=== PATIENT | female | born 1985 | race Caucasian/White ===

== ENCOUNTER 2018-06-27 06:20 | Inpatient (IN) | payer BC, SELFPAY ==
[2018-06-27 06:13] LABS: ROM Internal Control Test YES-OK TO RESULT pt. (Internal QC)
[2018-06-27 06:14] LABS: ROM Patient Test POSITIVE (Negative)
[2018-06-27 06:20] VITALS: BMI 43.5
[2018-06-27] MEDS: Lactated Ringers 1,000 ML 50 ML IV ×3 (07:05→15:32)
[2018-06-27 07:21] LABS: Hematocrit 33.1 % (37-47); Hemoglobin 10.9 g/dl (12.0-15.0); Mean Corp Hgb Conc 32.9 g/gl (32-36); Mean Corpuscular Hgb 29.1 pg (27.0-32.0); Mean Corpuscular Volume 88.5 fL (81-99); Mean Platelet Vol. 9.1 fl (6.2-12.0); Platelet Count 288 K/mm3 (150-450); RBC Distribution Width CV 15.6 % (11.6-14.6); RBC Distribution Width SD 48.9 fl (35.1-43.9); Red Blood Count 3.74 M/mm3 (4.2-5.4); White Blood Count 7.7 K/mm3 (4.4-11.0)
[2018-06-27] MEDS: Cefazolin 2 GM in 0.9% Normal Saline 100 ML IV (07:22)
[2018-06-27 07:34] LABS: Scan Indicated on CBC? Y/N NO
[2018-06-27] MEDS: Oxytocin 30 units/NS 500 ml 30 UNITS/500 ML IV.SOLN IV (07:39)
--- NOTE | 2018-06-27 11:40 | HP.PCM_ITS ---
History Date of Admission: 06/27/18 Final LUCAS: 07/13/18 Final LUCAS Source: US <20 weeks Gestational age: 37 Weeks and 5 Days History of this : This is a 32 year-old, w/ premature rupture of membranes at approximately 2 AM. She has had some irregular contractions. No gross vaginal bleeding. She has had good movement. Her has been uncomplicated to date. Allergies latex Allergy (Verified 06/27/18 06:17) Other itching rash Penicillins [PCN] Allergy (Verified 06/27/18 06:17) Hives Home Medications: Home Medications Vits [Prenatabs FA ] 1 tablet PO DAILY 10/10/15 Ferrous Sulfate [Slow Release Iron] 45 mg PO DAILY 10/11/15 Aspirin [Adult Aspirin] 81 mg PO DAILY 06/27/18 Smoking Status: Never smoker Alcohol: None Number of Fetus(es): 1 Heart Tracing: Normal baseline with moderate variability and spontaneous accelerations. TOCO Analysis: Contractions approximately every 3 minutes History Past Pregnancies: Past Pregnancies Delivery Date Name GA/Weeks Outcome Route Weight Gender Labor Length Anesthesia Delivery Location Provider FOB Expected Infant Delivery Method: Spontaneous Vaginal Review of Systems Constitutional: Denies: Chills, Fever Eyes: Denies: Blurred vision Cardiovascular: Denies: Chest Pain Respiratory: Denies: Cough Gastrointestinal: Denies: Abdominal Pain Physical Exam General: Alert, Cooperative, No apparent distress Cardiovascular: Regular rate Lungs: Normal air movement Abdomen: Soft, Non-Distended, Gravid, Appropriate for Gestational Age Extremities:: Other - Edema 1+ SUGAR CANE GROWER: Normal external genitalia Estimated gestational size: Appropriate for gestational size Presentation: Cephalic Cervix Dilation (cm): 2.5 Station: -2 Effacement (%): 60 Assessment/Plan 32-year-old 4 para 1021 at 37-5/7 weeks gestation with premature rupture of membranes. Estimated weight is less than 4500 g clinically, and pelvis clinically adequate to expect vaginal delivery. Patient may have nitrous oxide or epidural as needed. Will undergo Pitocin induction of labor. Will initiate group B strep prophylaxis. Mild antepartum anemia, no treatment necessary at this time.
[2018-06-27] MEDS: fentaNYL-bupivacaine (epidural) 100 ML BAG EPIDURAL (12:33)
[2018-06-27] MEDS: Cefazolin 1 GM/50 ML BAG IV (15:22)
[2018-06-27] MEDS: Oxytocin 30 units/NS 500 ml 30 UNITS/500 ML IV.SOLN 334 UNITS IV (16:50)
--- NOTE | 2018-06-27 17:12 | OP.PCM_ITS ---
Vaginal Delivery Maternal Presentation: Medically Indicated Induction Medical Reason for Induction: Premature Rupture of Membranes Amniotic Membrane Rupture Type: Spontaneous at home Amniotic Fluid Description: Clear Final LUCAS: 07/13/18 Gestational age: 37 Weeks and 5 Days Date of Procedure: 06/27/18 Pre-Operative Diagnosis: labor Post-Operative Diagnosis: same Surgery/ Procedure Performed: Spontaneous Vaginal Delivery Type of Anesthesia: Epidural Description of Procedure: A vigorous male was delivered LOP over a second-degree perineal laceration. A loose nuchal cord ?1 was easily reduced. The remainder the was delivered with maternal pushing and gentle traction only in less than 15 seconds. The Pitocin infusion was initiated for active management of the third stage. The cord was clamped and cut after 1 minute. The infant was attended to by the waiting nursing staff. The placenta was delivered spontaneously and intact. The cervix and vagina were intact. The second- degree perineal laceration was repaired with 3-0 Vicryl suture in a running standard fashion. Sponge and needle counts were correct. A vaginal sweep was completed by me. Presentation: LOP Placental Delivery Description: Spontaneous Placenta Disposition: [facility] Cord Vessel Description: 3 Vessels Nuchal Cord Compression: Without compression Cord Entanglement: Around neck x 1, loose Drain: Fitch to straight drain Estimated Blood Loss: 400 A gender: Male (1 minute): 9 (5 minute): 9 Episiotomy Description: None Laceration: 2nd degree - perineal Medications given after delivery: IV Pitocin Complications: None
[2018-06-27] MEDS: Oxytocin 30 units/NS 500 ml 30 UNITS/500 ML IV.SOLN 167 UNITS IV (17:20)
[2018-06-27 20:45] VITALS: BP 145/81; PULSE 111; RESP 18; TEMP 37.5
[2018-06-27 23:45] VITALS: BP 124/79; PULSE 96; RESP 18; TEMP 37.7
[2018-06-28 04:30] VITALS: BP 119/74; PULSE 81; RESP 16; TEMP 37
[2018-06-28 07:35] VITALS: BP 134/80; PULSE 78; RESP 17; TEMP 36.7; O2SAT 97
--- NOTE | 2018-06-28 08:32 | PCM.PN.OB ---
Subjective: Pain well controlled, average lochia, no other complaints. - Physical Exam General: Alert, Cooperative, No apparent distress Vital Signs Temp Pulse Resp BP Pulse Ox 98.0 F 78 17 134/80 H 97 06/28/18 07:35 06/28/18 07:35 06/28/18 07:35 06/28/18 07:35 06/28/18 07:35 Oxygen Delivery Method Room Air Weight: 122.47 kg Body Mass Index (BMI) 43.5 Intake and Output for Last 24 Hours 06/26/18 06/27/18 06/28/18 23:59 23:59 23:59 Intake Total 2517 / 2517 Output Total 700 / 700 Balance 1817 / 1817 Laboratory Tests Past 24 Hrs 06/27/18 07:05 Blood Type O POSITIVE Antibody Screen NEGATIVE Medical Necessity - Tobacco Use Smoking Status: Never smoker Assessment/Plan day #1 status post spontaneous vaginal delivery with second-degree laceration repair. Patient is doing well. Breast-feeding is going well. We will continue routine care today. Had some mildly elevated blood pressures yesterday. Will monitor those today. Likely home tomorrow.
--- NOTE | 2018-06-28 08:35 | DCINST_ITS ---
Discharge Diet: No Restrictions Discharge Activity: Return to Normal Activity, May not drive while taking narcotic pain medications., May Shower May resume sexual activity in: 4-6 weeks Additional Activity Instructions:: Nothing in the vagina for 4-6 weeks. You may return to work/school in 6 weeks. Call your doctor if your incision/area has: Continuous Slow Oozing, Sudden Increased Bleeding, Increased Pain/ Swelling, Increased Redness, Foul Smelling Discharge Additional Instructions: If you experience any of the following, contact your healthcare provider. * Bleeding that soaks a pad every hour for 2 hours * Fever 100.4 or higher * Unrelieved incision or abdominal pain * Swelling, redness, discharge or bleeding from your incision or episiotomy site * Your incision begins to separate * Problems urinating (including inability to urinate or burning while urinating) . * Visual changes * Severe headache * Flu-like symptoms * Pain or redness in one of both of your breasts * Pain, warmth, tenderness or swelling in your legs, especially the calf area * Frequent nausea and vomiting * Symptoms of depression or anxiety If you experience any of the following, call 911 or go to the nearest Emergency Room. * Chest pain * Problems breathing * Seizure activity * Partial or complete paralysis of a body part, slurred speech, weakness or drooping of the face, or a sudden inability to walk or hold your balance Allergies/Adverse Reactions: Allergies latex Allergy (Verified 06/27/18 06:17) Other itching rash Penicillins [PCN] Allergy (Verified 06/27/18 06:17) Hives Medications to take at Discharge Vits [Prenatabs FA ] 1 tablet PO DAILY 10/10/15 Ibuprofen [Motrin] 600 mg PO Q6H PRN #60 tab 06/28/18 The following prescriptions were given: Ibuprofen [Motrin] 600 mg PO Q6H PRN #60 tab PRN Reason: Pain Please Follow Up With: Lucero Rosario MD - [phone] When: Call to make an appointment with your doctor in 1-2 and 6 weeks Primary Care Physician: Kieran Thompson DO [Primary Care Provider] - Test Results: Test results from this visit will be discussed in further detail at your follow- up appointment, if applicable.
[2018-06-28 11:40] VITALS: BP 129/69; PULSE 69; RESP 16; TEMP 36.9; O2SAT 98
--- NOTE | 2018-06-28 12:01 | NURSING ---
Noon vital signs obtained. Initial pt. blood pressure was 156/94 while pt. was sitting in bed. Pt. put into a low Brown's position and blood pressure was reassessed. Reassessment was 129/69. Pt. denies any vision changes, headache, or abdominal pain.
[2018-06-28 15:55] VITALS: BP 141/85; PULSE 87; RESP 17; TEMP 36.9; O2SAT 97
[2018-06-28 20:04] VITALS: BP 148/90; PULSE 93; RESP 16; TEMP 36.6; O2SAT 97
[2018-06-29 02:30] VITALS: BP 128/79; PULSE 67; RESP 18; TEMP 36.8; O2SAT 97
[2018-06-29 09:00] VITALS: BP 142/89; PULSE 86; RESP 16; TEMP 36.9
--- NOTE | 2018-06-29 10:16 | PCM.PN.OB ---
Subjective: pain well controlled. No JJ or visual changes or epigastric pain - Physical Exam General: Alert, Cooperative, No apparent distress Extremities: Edema - 1+, - - 2+ DTRs, no clonus Vital Signs Temp Pulse Resp BP Pulse Ox 98.3 F 67 18 128/79 H 97 06/29/18 02:30 06/29/18 02:30 06/29/18 02:30 06/29/18 02:30 06/29/18 02:30 Oxygen Delivery Method Room Air Weight: 122.47 kg Body Mass Index (BMI) 43.5 Intake and Output for Last 24 Hours 06/27/18 06/28/18 06/29/18 23:59 23:59 23:59 Intake Total 2517 / 2517 Output Total 700 / 700 Balance 1817 / 1817 Medical Necessity - Tobacco Use Smoking Status: Never smoker Assessment/Plan PPD#2 s/p ready for d/c will monitor BP at home and send results to me in 2-3 days or prn persistent elevations. f/u in 1 week or prn
== END 2018-06-29 10:50 | disposition home or self-care (01) | DRG 775 ==
LOC: WPOUT 06:23
PROVIDERS: Admitting Provider Obstetrics & Gynecology; Family Provider Family Medicine; PCP Family Medicine; Visit Provider Obstetrics & Gynecology
DX: O42.92 Full-term premature rupture of membranes, unspecified as to length of time between rupture and onset of labor (principal); Z3A.37 37 weeks gestation of pregnancy; O70.1 Second degree perineal laceration during delivery; Z37.0 Single live birth
CPT/HCPCS: 59025; 59050; 84112; 85027; 86850; 86900; 99218; J7120; G0378

== ENCOUNTER → 2020-01-17 | Outpatient (CLI) | payer OTHER, SELFPAY ==
[2020-01-17 17:29] VITALS: BMI 40.3
[2020-01-18 10:46] LABS: Mucous, Urine 0 SEEN /hpf (<or=2+)
[2020-01-18 11:58] LABS: Color, Urine Brown (Yellow); Glucose, Dipstick Normal (Normal); Ketone-Dipstick 5 mg/dl (Negative); Leukocyte Esterase-Dipstick 100 /ul (Negative); Nitrite-Dipstick Positive (Negative); Occult Blood-Urine 250 /ul (Negative); Protein-Dipstick 100 mg/dl (Negative); Urine Bilirubin Dipstick Negative (Negative); Urine Clarity Cloudy (Clear); Urine Urobilinogen Normal (Normal)
[2020-01-18 12:00] LABS: Squamous Epithelial Cells - UA 5-10 SEEN /hpf (5-10)
[2020-01-18 12:01] LABS: White Blood Cells 10-25 SEEN /hpf (0-5)
[2020-01-18 12:10] LABS: Yeast-Urine 3+ /hpf (None Seen)
[2020-01-18 12:12] LABS: Bacteria 1+ /hpf (None Seen); Red Blood Cells-Urine > 100 SEEN /hpf (0-5)
== END | disposition home or self-care (01) ==
LOC: LABSPEC 01-18 10:36
PROVIDERS: PCP Family Medicine; Referring Provider Physician Assistant Surgical; Visit Provider Physician Assistant Surgical
DX: N30.01 Acute cystitis with hematuria (principal)
CPT/HCPCS: 81001; 87086; 87088

== ENCOUNTER → 2020-01-19 10:15 | Outpatient (CLI) | payer OTHER, SELFPAY ==
[2020-01-17 17:29] VITALS: BMI 40.3
--- NOTE | 2020-01-19 10:27 | RAD_ITS ---
STUDY: X-RAY - ABDOMEN/PELVIS REASON FOR EXAM: Female, 34 years old. Left kidney calculus TECHNIQUE: Single AP view of the abdomen / pelvis. COMPARISON: None. FINDINGS: There is a moderate amount of colonic fecal material. There is a 7.2 mm calculus in the upper pole of the left kidney. There is also evidence of a 8.4 mm rounded calcification overlying the transverse processes of the L2 vertebrae on the left side. This most likely represents a proximal left ureteral calculus. IUD is seen within the pelvis. Normal visualized osseous structures. RAD/Abdomen Single View IMPRESSION: 7.2 mm calculus in the upper pole calyx of the left kidney. 8.4 mm rounded calcification overlying the transverse processes of the L2 vertebra on the left side suggestive of a proximal left ureteral calculus. IUD is seen within the pelvis. Electronically Signed: Vishal Dodson, at 11:05 EDT , Service support ,
== END ==
PROVIDERS: PCP Family Medicine; Referring Provider Urology; Visit Provider Urology
DX: N20.0 Calculus of kidney (principal)
CPT/HCPCS: 74018

== ENCOUNTER 2020-01-20 06:55 | Day surgery (SDC) | payer OTHER, SELFPAY ==
[2020-01-17 17:29] VITALS: BMI 40.3
[2020-01-20 07:17] VITALS: BP 148/89; PULSE 86; RESP 16; TEMP 36.5; O2SAT 97; BMI 43.5
[2020-01-20 07:23] LABS: Internal QC Validated? YES +Cl - CLEAR BKGD; Pregnancy, Urine Negative Negative
[2020-01-20] MEDS: Lactated Ringers 1,000 ML 100 ML IV (07:25)
--- NOTE | 2020-01-20 09:03 | DCINST_ITS ---
Discharge Diet: Light diet - advance as tolerated Discharge Activity: Return to Normal Activity, May not drive while taking narcotic pain medications. Call your doctor if your incision/area has: Sudden Increased Bleeding Call your doctor if you observe: Uncontrolled pain Instructions: Shock Wave Lithotripsy Allergies/Adverse Reactions: Allergies latex Allergy (Verified 01/20/20 07:05) Other itching rash Penicillins [PCN] Allergy (Verified 01/20/20 07:05) Hives Medications to take at Discharge multivitamin,[id number] 1 tab PO DAILY 01/17/20 Oxycodone HCl/Acetaminophen [Percocet 5-325 mg Tablet] PO Q6H PRN PRN 01/19/20 Tamsulosin HCl [Flomax] 0.4 mg PO DAILY 01/19/20 Ciprofloxacin [Cipro] 500 mg PO BID #6 tab 01/20/20 Hydrocodone/Acetaminophen [[place] 5-325 Tablet] 1 ea PO Q4H PRN PRN 5 Days #14 tab 01/20/20 The following prescriptions were given: Ciprofloxacin [Cipro] 500 mg PO BID #6 tab Transmission Status: Sent to [address] Hydrocodone/Acetaminophen [[place] 5-325 Tablet] 1 ea PO Q4H PRN PRN 5 Days #14 tab PRN Reason: Pain Or Fever Prescription Printed Primary Care Physician: Milton Alvarado DO [Primary Care Provider] - Test Results: Test results from this visit will be discussed in further detail at your follow- up appointment, if applicable. Please Follow Up With: Jax Vazquez MD When: please call to make an appointment.
--- NOTE | 2020-01-20 09:04 | HP.PCM_ITS ---
Problem List (1) Obstructing left ureteral calculi Status: Acute History of Present Illness Date of Admission: 01/20/20 Chief Complaint: Obstructing left ureteral calculi The patient is a 34 year old female with obstructing left ureteral calculi plan to proceed with treatment today with stent and shockwave lithotripsy Past Medical History Medical History: Medical History (Last Updated 01/17/20 @ 17:31 by Darlene Donnelly) Arthritis M19.90 Hypertension I10 Allergies latex Allergy (Verified 01/20/20 07:05) Other itching rash Penicillins [PCN] Allergy (Verified 01/20/20 07:05) Hives Home Medications: Ambulatory Orders Medication Instructions Recorded multivitamin,[id number]-rzsz-[id number] 1 tab PO DAILY 01/17/20 Oxycodone HCl/Acetaminophen PO Q6H PRN PRN 01/19/20 [Percocet 5-325 mg Tablet] Tamsulosin HCl [Flomax] 0.4 mg PO DAILY 01/19/20 Ciprofloxacin [Cipro] 500 mg PO BID #6 tab 01/20/20 Hydrocodone/Acetaminophen [[place] 1 ea PO Q4H PRN PRN 5 Days #14 tab 01/20/20 5-325 Tablet] Surgical History: Surgical History (Last Updated 01/17/20 @ 17:31 by Darlene Donnelly) H/O hernia repair Z98.890, Z87.19 Surgical History: no surgical history Smoking Status: Never smoker Review of Systems Constitutional: Denies: Chills, Fever, Weight Change HEENT: Denies: Head Aches, Sinus Congestion, Sinus Drainage Cardiovascular: Denies: Chest Pain, Palpitations Respiratory: Denies: Cough, Shortness of breath at rest, Sputum production Gastrointestinal: Denies: Abdominal Pain, Nausea, Vomiting Genitourinary: Denies: Dysuria Musculoskeletal: Denies: Joint Pain, Joint Tenderness Skin: Denies: Rash, Wounds Neurological: Denies: Numbness, Tingling, Focal weakness Psychiatric: Denies: Anxiety, Depression, Homicidal Ideations, Suicidal Ideations Hematologic/ Lymphatic: Denies: Easy Bruising, Easy Bleeding VTE Information - Inpt Only VTE Present on Admission: No VTE Mechan Device Prophylaxis: SCD's Patient Problems: Active and Suspected Problems (Last Updated 01/17/20 @ 17:31 by Darlene Donnelly) Obstructing left ureteral calculi (Acute) - Physical Exam Vitals/I&O's: Vital Signs Temp Pulse Resp BP Pulse Ox 97.7 F L 86 16 148/89 H 97 01/20/20 07:17 01/20/20 07:17 01/20/20 07:17 01/20/20 07:17 01/20/20 07:17 Oxygen Delivery Method Room Air Weight: 122.5 kg Body Mass Index (BMI) 43.5 General: Alert, Oriented x3, Cooperative HEENT: Atraumatic, PERRLA, EOMI, Normocephalic Neck: Supple, No JVD, Negative Carotid Bruits Lungs: Clear to auscultation, Normal air movement Cardiovascular: Regular rate, No murmurs Abdomen: Bowel Sounds Present, Soft, Non Tender Extremities: No edema, Capillary Refill Less than 3 Seconds Skin: No rashes, No breakdown Musculoskeletal: No Tenderness to Palpation of Joints or Extremities Neurological: Cranial nerves II-XII grossly intact Psych/Mental Status: Normal Affect, Appropriate Laboratory Results 01/20/20 07:12: Serum , Qual Cancelled 01/20/20 07:21: Urine Test Negative Current Medications Lactated Ringer's () 1,000 mls @ 100 mls/hr IV .Q10H VIN Last Admin: 01/20/20 07:25 Dose: 100 mls/hr Documented by: Assessment/Plan All Active Problems (Last Updated 01/17/20 @ 17:31 by Darlene Donnelly) Obstructing left ureteral calculi (Acute) Urinary tract infection (Acute) 34-year-old female with obstructing left ureteral calculi plan to place a stent to the left side and shock the stone is causing a blockage also possible to shock the stone itself in the kidney Essential Procedure Criteria Procedure Essential: Yes Criteria Note: On 12/27/2019 the [place] Department of Health ([facility]) Public Order signed by [facility] Director Cydney Corona M.D., regarding the Management of Non- Essential Surgeries and Procedures for the purpose of preserving Personal Protective Equipment (PPE) and critical hospital capacity and resources within [place] went into effect as of 12/28/2019 at 5:00PM. According to the [facility] Public Order: This action will remain in full force and effect until the State of Emergency declared by the Governor no longer exists or the Director of the [facility] rescinds or modifies this Order.. This [facility] order stated all non-essential or elective surgeries and procedures that utilize PPE should be delayed unless there is undue risk to the current or future health of a patient. After reviewing the aforementioned [facility] Public Order and the patients clinical case, I have determined that the scheduled procedure meets the criteria to go forward. Risk to Patient if Procedure Delayed: Threat of permanent dysfunction of an extremity or organ system
[2020-01-20] MEDS: Cefazolin 2 GM in 0.9% Normal Saline 100 ML IV (09:21)
--- NOTE | 2020-01-20 10:20 | PCM.OPRPT ---
Problem List (1) Obstructing left ureteral calculi Status: Acute Report of Operation Date of Procedure: 01/20/20 Pre-Operative Diagnosis: Left obstructing ureteral calculi left renal calculi Post-Operative Diagnosis: Same Surgery/Procedure Performed:: Cystoscopy left stent placement and left extracorporeal shockwave lithotripsy Description of Surgical Findings:: The patient presents to the hospital today for treatment of a calculus with shockwave lithotripsy. The patient understands it is possible that a stent may need to assist in the fragmentation and displacement of the stone in order to alleviate obstruction. We discussed how the procedure is done expected outcomes. The Patient understands it is possible the stone may not break successfully and may require further procedures. We talked about the risks of the shockwave lithotripsy including risk of infection, bleeding, failure to break the stone, bleeding from the kidney or retroperitoneal bleeding and a very rare risk of a blood transfusion. We discused the risk of anesthesia. All the patient's questions were addressed and answered before the surgery and the patient signed the consent form. The patient was taken back to the operating room and after smooth induction of anesthesia was transferred onto the lithotripter table, fluoroscopy was used to identify the stone and then used triangulation technique to make sure the stone was in the F2 focal point of the lithotripter. Shockwave lithotripsy was started at a rate of 90/min and a total of 4000 shockwaves were delivered to the stones, 2000 in the proximal ureteral stone and 2000 to the renal stone. During the treatment the stone was monitored with fluoroscopy to ensure that the stone maintained in the treatment zone and als fragmentation was monitored under fluoroscopy. Lithotripsy power used during the treatment was modified according to the fragmentation protocol and ranged from 5 to 9 kV depending on the location of the stone within the ureter and the kidney. During the treatment it was determined that a stent was necessary, the patient was prepped and draped in usual sterile fashion, we went into the bladder through the urethra with a rigid cystoscope ureteroscope and identified the Left orifice, a wire was advanced up into the kidney and then over the wire a stent was placed. After the completion of the therapy session the patient's anesthetic was reversed and was taken back to the PACU in stable condition. Type of Anesthesia:: General Drains: stent - Admit VTE Documentation VTE Present on Admission: No VTE Mechan Device Prophylaxis: SCD's
[2020-01-20 10:30] VITALS: BP 135/97; BP 148/89; PULSE 82; RESP 16; TEMP 36.2; O2SAT 95
[2020-01-20 10:45] VITALS: BP 147/96; BP 148/89; PULSE 70; RESP 16; O2SAT 98
[2020-01-20] MEDS: Ketorolac 15 MG/ML Vial IV (10:50)
[2020-01-20 11:00] VITALS: BP 143/99; BP 148/89; PULSE 66; RESP 16; TEMP 36.7; O2SAT 98
[2020-01-20 11:28] VITALS: BP 139/88; BP 148/89; RESP 16
[2020-01-20 11:42] VITALS: BP 148/89
--- NOTE | 2020-01-20 12:01 | PCM.OPRPT ---
Problem List (1) Obstructing left ureteral calculi Status: Acute Report of Operation Date of Procedure: 01/20/20 Pre-Operative Diagnosis: Left proximal ureteral calculi the [facility] Post-Operative Diagnosis: Same Surgery/Procedure Performed:: Cystoscopy left stent placement left extracorporeal shockwave lithotripsy Description of Surgical Findings:: The patient presents to the hospital today for treatment of a calculus with shockwave lithotripsy. The patient understands it is possible that a stent may need to assist in the fragmentation and displacement of the stone in order to alleviate obstruction. We discussed how the procedure is done expected outcomes. The Patient understands it is possible the stone may not break successfully and may require further procedures. We talked about the risks of the shockwave lithotripsy including risk of infection, bleeding, failure to break the stone, bleeding from the kidney or retroperitoneal bleeding and a very rare risk of a blood transfusion. We discussed the risk of anesthesia. All the patient's questions were addressed and answered before the surgery and the patient signed the consent form. The patient was taken back to the operating room and after smooth induction of anesthesia was transferred onto the lithotripter table, fluoroscopy was used to identify the stone and then used triangulation technique to make sure the stone was in the F2 focal point of the lithotripter. Shockwave lithotripsy was started at a rate of 90/min and a total of 4000 shockwaves were delivered to the stone. During the treatment the stone was monitored with fluoroscopy to ensure that the stone maintained in the treatment zone and fragmentation was monitored under fluoroscopy. Lithotripsy power used during the treatment was modified according to the fragmentation protocol and ranged from 5 to 9 kV depending on the location of the stone within the ureter and the kidney. During the treatmeent it was determined that aa stent was necessary, the patient was prepped and draped in usual sterile fashion, we went into the bladder through the urethra with a rigid cystoscope ureteroscope and identified the left orifice, a wire was advanced up into the kidney and then over the wire a stent was placed. After the completion of the therapy session the patient's anesthetic was reversed and was taken back to the PACU in stable condition. Type of Anesthesia:: General Drains: stent left 6 x 26cm - Admit VTE Documentation VTE Present on Admission: No VTE Mechan Device Prophylaxis: SCD's
== END 2020-01-20 11:41 | disposition home or self-care (01) ==
LOC: SDC 06:56 → AC 06:57
PROVIDERS: PCP Family Medicine; Referring Provider Urology; Visit Provider Urology
PROC: (CPT 50590; principal; 2020-01-20 08:50)
DX: N20.2 Calculus of kidney with calculus of ureter (principal); N39.0 Urinary tract infection, site not specified; M19.90 Unspecified osteoarthritis, unspecified site; Z87.442 Personal history of urinary calculi
CPT/HCPCS: 50590; 52332; 81025; J7120; C1769; C2617; J2405

== ENCOUNTER → 2020-01-24 10:11 | Outpatient (CLI) | payer OTHER, SELFPAY ==
[2020-01-20 07:17] VITALS: BMI 43.5
--- NOTE | 2020-01-24 10:14 | RAD_ITS ---
STUDY: X-RAY - ABDOMEN/PELVIS REASON FOR EXAM: Female, 34 years old. FOLLOW UP FOR KIDNEY STONE LEFT SIDE TECHNIQUE: Single AP view of the abdomen / pelvis. COMPARISON: Comparison is made with prior study dated January 19, 2020. FINDINGS: Normal visualized lung bases. There is a moderate amount of colonic fecal material. The patient is status post left double-J stent placement. The proximal tip is in the left renal pelvis and the distal tip is in the left side of the bladder. The previously seen calcification overlying the transverse process of the L2 vertebra is not seen. The previously seen calculus in the left kidney is not seen. Normal soft tissue structures. Normal visualized osseous structures. RAD/Abdomen Single View IMPRESSION: Status post left double-J stent catheter placement. No ureteral or renal calculus is seen on the left side. Electronically Signed: Vishal Dodson, at 14:45 EDT , Service support ,
== END ==
PROVIDERS: PCP Family Medicine; Referring Provider Urology; Visit Provider Urology
DX: N20.1 Calculus of ureter (principal)
CPT/HCPCS: 74018

== ENCOUNTER → 2022-04-21 | Outpatient (CLI) | payer OTHER, SELFPAY ==
[2022-04-26 22:53] LABS: HPV APTIMA, High Risk Negative (Negative)
== END | disposition home or self-care (01) ==
LOC: LABSPEC 16:12
PROVIDERS: PCP Family Medicine; Visit Provider Nurse Practitioner Women's Health
DX: Z01.419 Encounter for gynecological examination (general) (routine) without abnormal findings (principal)
CPT/HCPCS: 87624; 88175; G0145

== ENCOUNTER → 2023-06-29 | Outpatient (CLI) | payer OTHER, SELFPAY ==
--- NOTE | 2023-06-29 15:46 | US_ITS ---
EXAM: US PELVIS TRANSABDOMINAL AND TRANSVAGINAL, COMPLETE CLINICAL INDICATION: bleeding, check IUD TECHNIQUE: Transabdominal and endovaginal pelvic ultrasound was performed with grayscale and color Doppler imaging. Endovaginal imaging was used for better evaluation of the endometrium and adnexa. COMPARISON: No relevant prior studies available. FINDINGS: UTERUS/CERVIX: Uterus measures 8.9 x 5.4 x 3.9 cm. Echogenic focus along the endocervical canal consistent with an IUD. Multiple small nabothian cysts are present. RIGHT OVARY: Normal. Blood flow is present in the right ovary. The right ovary measures 2.4 x 1.7 x 1.3 cm. LEFT OVARY: Normal. Blood flow is present in the left ovary. The left ovary measures 2.6 x 2.2 x 1.6 cm. FREE FLUID: No adnexal mass or free pelvic fluid. US/Pelvic w/ Transvaginal IMPRESSION: IUD located along the endocervical canal. Electronically Signed: Byron Peters MD at 16:48 EDT ,
== END | disposition home or self-care (01) ==
PROVIDERS: PCP Family Medicine; Referring Provider Nurse Practitioner Women's Health; Visit Provider Nurse Practitioner Women's Health
DX: N92.0 Excessive and frequent menstruation with regular cycle (principal); Z97.5 Presence of (intrauterine) contraceptive device
CPT/HCPCS: 76830; 76856

== ENCOUNTER → 2024-09-19 | Outpatient (CLI) | payer OTHER, SELFPAY ==
[2024-09-19 12:22] LABS: Absolute Lymphocyte Count 0.78 X10^3/uL (0.83-4.51); Absolute Neutrophil Count 4.1 X10^3/uL (2.0-7.7); Basophil# 0.03 X10^3/uL; Basophil% 0.6 % (0-1); Eosinophil# 0.04 X10^3/uL; Eosinophils% 0.7 % (0-5); Hematocrit 41.5 % (37-47); Hemoglobin 13.1 g/dL (12.0-15.0); Lymphocyte # 0.78 X10^3/ul (0.83-4.51); Lymphocyte % 14.4 % (19-41); Mean Corp Hgb Conc 31.6 g/dL (32-36); Mean Corpuscular Hgb 28.7 pg (27.0-32.0); Mean Corpuscular Volume 90.8 fL (81-99); Mean Platelet Vol. 10.5 fl (6.2-12.0); Monocyte# 0.46 X10^3/uL; Monocyte% 8.5 % (0-10); NRBC Flagged by Analyzer 0 % (0-5); Neutrophil # 4.11 X10^3/uL (2.7-7.7); Neutrophil % 75.6 % (47-70); Platelet Count 252 K/mm3 (150-450); RBC Distribution Width CV 13.5 % (11.6-14.6); RBC Distribution Width SD 45.3 fl (35.1-43.9); Red Blood Count 4.57 M/mm3 (4.2-5.4); White Blood Count 5.4 K/mm3 (4.4-11.0)
[2024-09-19 13:14] LABS: ALB/GLOB Ratio 1.2 RATIO (0.9-2.4); AST(SGOT) 23 U/L (15-37); Alanine Aminotransfer ALT/SGPT 32 U/L (13-56); Albumin, Serum 3.8 g/dL (3.2-5.0); Alkaline Phosphatase 76 U/L (45-117); Anion Gap 4 (5-15); BUN 10 mg/dL (7-18); BUN/Creat Ratio 13.8 RATIO (10-20); Calcium,Total 9.7 mg/dL (8.5-10.1); Chloride 104 mmol/L (98-107); Cholesterol 151 mg/dL (200); Creatinine, Serum 0.72 mg/dL (0.55-1.02); EST Glomerular Filtration Rate 95 mL/min (>60); Est Glom Filt Rate - Afr Amer 115 mL/min (>60); Globulin 3.3 g/dL (2.2-4.2); Glucose 115 mg/dL (74-106); High Density Lipoprotein 46 mg/dL; Potassium 3.7 mmol/L (3.5-5.1); Protein, Total 7.1 g/dL (6.4-8.2); Sodium Level 139 mmol/L (136-145); Triglycerides 42 mg/dL; Very Low Density Lipoprotein 8 mg/dL (5-40)
== END | disposition home or self-care (01) ==
LOC: BFHLAB 10:15
PROVIDERS: PCP Family Medicine; Referring Provider Family Medicine; Visit Provider Family Medicine
DX: Z00.00 Encounter for general adult medical examination without abnormal findings (principal)
CPT/HCPCS: 36415; 80053; 80061; 84443; 85025

== ENCOUNTER → 2024-12-12 | Outpatient (CLI) | payer OTHER, SELFPAY ==
--- NOTE | 2024-12-12 11:45 | BI_ITS ---
PROCEDURE: SCRN MAMM (CAD)W/JUAN BILAT REASON FOR EXAM: F, Age 39 y/o , no family history. Baseline study. COMPARISON: Baseline TECHNIQUE: Bilateral screening digital breast tomosynthesis with C-View and 2D FFDM. Computer aided detection. FINDINGS: There are scattered areas of fibroglandular density. Small benign-appearing bilateral axillary lymph nodes. Normal BI/SCRN MAMM (CAD)W/JUAN BILAT IMPRESSION: BI-RADS 2: BENIGN. RECOMMEND ANNUAL MAMMOGRAPHIC SCREENING. Routine follow-up recommended. The patient will be notified of the results by letter. Reading Location: [facility]
== END | disposition home or self-care (01) ==
LOC: OPBI 11:45
PROVIDERS: PCP Family Medicine; Referring Provider Nurse Practitioner Family; Visit Provider Nurse Practitioner Family
DX: Z12.31 Encounter for screening mammogram for malignant neoplasm of breast (principal)
CPT/HCPCS: 77063; 77067